=== PATIENT | male | born 1965 ===

== ENCOUNTER 2025-01-25 15:18 | Outpatient (CLI) | payer BC ==
[2025-01-25 15:07] VITALS: BP 201/127; PULSE 93; RESP 20; O2SAT 94
[2025-01-25 16:21] VITALS: BP 170/120; PULSE 78; RESP 20; O2SAT 94
== END 2025-01-25 17:00 | disposition home or self-care (01) ==
LOC: CHF HDHVI 15:18
PROVIDERS: ATTEND Internal Medicine Cardiovascular Disease
DX: I10 Essential (primary) hypertension (principal)
CPT/HCPCS: G0463

== ENCOUNTER 2025-03-24 15:34 | Outpatient (CLI) | payer BC | END 2025-03-27 17:00 | disposition home or self-care (01) | LOC: Rad HDHVI 15:34 | PROVIDERS: ATTEND Internal Medicine Cardiovascular Disease | DX: I35.8 Other nonrheumatic aortic valve disorders (principal); R06.02 Shortness of breath | CPT/HCPCS: 93306 ==

== ENCOUNTER 2025-04-28 07:57 | Outpatient (CLI) | payer BC ==
[~2025-04-28] VITALS: Ht 175.3 cm; Wt 98.9 kg
--- NOTE | 2025-05-02 10:45 | DVHSR ---
APPROVED REPORT Exam: Nuclear Stress Test Indication: Dyspnea Ht: 5 ft 9 in Wt: 218 lbs BSA: 2.14 m2 HR: 67 bpm BP: 148/94 mmHg BMI: 32.18 Rhythm: NSR Medical History Medical History: HTN, Hypercholesterolemia, Abnormal EKG, Dypsnea Medications: Toprol XL, Dyazide, Norvasc, Clonidine Allergies: No known drug allergies Cardiac Risk Factors: Family Hx of CAD Stress Test Details Stress Test: Exercise stress testing was performed using a Aaron protocol. HR Resting HR: 67 bpmMax Heart Rate (APMHR): 163.619511 bpm Max HR Achieved: 142 bpmTarget HR (85% APMHR): 138.441522 bpm % of APMHR: 87.12 Recovery HR: 99 bpm HR response to stress: Normal HR response to stress BP Resting BP: 148/94 mmHg Max BP: 218/107 mmHg Recovery BP: 158/108 mmHg BP response to stress: Resting hypertension- Exaggerated response ECG Resting ECG: Sinus Rhythm Stress ECG: Sinus Tachycardia Arrhythmia: PVC Recovery ECG: Sinus Rhythm Clinical Reason for Termination: Target HR achieved Stress Symptoms: Fatigue Exercise duration: 9 min 11 sec Exercise capacity: 10.10 METs Nurse Comments Hypertensive upon arrival 192/113, Clonidine 0.2 mg given prior to test. Stress ECG Conclusion EF <20% DILATED CM MILD APICAL REVERSIBILITY NM EXAM: Myocardial Perfusion REST/STRESS Imaging Protocol: Rest Tc-99m/Stress Tc-99m 1 day Resting Data Rest SPECT myocardial perfusion imaging was performed in supine position 30 minutes following the int ravenous injection of 10.92 mCi of Tc-99m Sestamibi. Time of rest injection: 812 Date: 04/28/2025 Time of rest imagin Date: 04/28/2025 Administration Route: IV Administration Site: Left AC Exercise Stress At peak stress, the patient was injected intravenously with 32.2 mCi of Tc-99m Sestamibi. Time of stress injection: 1140 Date: 04/28/2025 Time of stress imagin Date: 04/28/2025 Administration Route: IV Administration Site: Left AC Heart Rate at time of stress injection: 141 bpm. Patient continued to exercise for 1 minute(s). Gated Stress SPECT was performed 15 minutes after stress injection. The images were gated to evaluate regional wall motion and calculate left ventricular ejection fracti on. Comments Cardiolite injection at 8 minutes, 14 seconds into test. Nuclear Conclusion EF <20% DILATED CM MILD APICAL REVERSIBILITY
== END 2025-04-28 17:00 | disposition home or self-care (01) ==
LOC: Rad HDHVI 07:57
PROVIDERS: ATTEND Internal Medicine Cardiovascular Disease
DX: I49.1 Atrial premature depolarization (principal); I11.9 Hypertensive heart disease without heart failure; E78.00 Pure hypercholesterolemia, unspecified; R94.31 Abnormal electrocardiogram [ECG] [EKG]; R00.0 Tachycardia, unspecified; R06.00 Dyspnea, unspecified; R06.02 Shortness of breath; Z13.6 Encounter for screening for cardiovascular disorders; Z82.49 Family history of ischemic heart disease and other diseases of the circulatory system
CPT/HCPCS: 78452; 93017; A9500; 96374